=== PATIENT | male | born 1990 | race African-American/Black ===

== ENCOUNTER 2021-11-10 19:01 | Inpatient (IN) | payer MEDICARE, MEDICAID ==
[2021-11-10] MEDS ORDERED: Morphine 4 MG/ML VIAL ONE (19:43)
[2021-11-10] MEDS ORDERED: diphenhydrAMINE 50 MG/ML VIAL ONE (20:04)
[2021-11-10 20:29] LABS: Reticulocyte Count 8.1 % (0.5-1.5)
[2021-11-10 20:35] LABS: Hemoglobin 10.6 g/dL (14.0-18.0); Mean Corpuscular HGB CONC 34.1 g/dL (32.0-36.0); Mean Corpuscular Hemoglobin 32.4 pg (27.0-31.0); Mean Corpuscular Volume 95.1 fL (78.0-98.0); Mean Platelet Volume 8.6 fL (7.4-10.4); Platelet Count 271 thou/uL (130-400); RBC Distribution Width 21.2 % (11.5-14.5); Red Blood Cell (RBC) Count 3.28 mill/uL (4.70-6.10); White Blood Cell (WBC) Count 8.7 thou/uL (4.8-10.8)
[2021-11-10 20:36] LABS: ALT (SGPT) 26 U/L (8-55); AST (SGOT) 27 U/L (5-34); Albumin 4.2 g/dL (3.5-5.0); Alkaline Phosphatase 157 U/L (40-110); Anion Gap 11 mmol/L (10-20); BUN (Urea Nitrogen) 5 mg/dL (8.9-20.6); Bilirubin, Total 1.9 mg/dL (0.2-1.2); Calc. Creatinine Clearance 0 mL/min (70-130); Calcium 8.9 mg/dL (7.8-10.44); Carbon Dioxide 26 mmol/L (22-29); Chloride 106 mmol/L (98-107); Glucose 93 mg/dL (70-105); Potassium 3.5 mmol/L (3.5-5.1); Protein, Total 7.2 g/dL (6.0-8.3); Sodium 139 mmol/L (136-145)
[2021-11-10 20:38] LABS: Eosinophils 2 % (0-10); Lymphocytes 27 % (21-51); MDiff Complete? YES; Monocytes 13 % (0-10); Neutrophil 58 % (42-75); Nucleated RBC 1 % (0); Platelet Morphology Comment Appears Adequate; Polychromasia SLIGHT = 2-3 cells (100X) (0-2/hpf); Target Cells SLIGHT = 2-5 cells (100X) (0-1/hpf)
[2021-11-10] MEDS ORDERED: HYDROmorphone 0.5 MG/0.5 ML SYRINGE ONE ×2 (21:01→23:05)
[2021-11-10] MEDS ORDERED: Acetaminophen 325 MG TAB PO PRN (23:47)
[2021-11-10] MEDS ORDERED: Guaifenesin DM 100-10/5 ML UDCUP PO PRN (23:47)
[2021-11-10] MEDS ORDERED: methylPREDNISolone Sod Succ/PF 125 MG/2 ML VIAL IVP SCH (23:56)
[2021-11-11 00:03] LABS: SARS-CoV-2 NAA Rapid Test Not Detected (NotDetected)
[2021-11-11] MEDS ORDERED: Folic Acid 1 MG TAB PO SCH (00:15)
[2021-11-11] MEDS ORDERED: HYDROmorphone 0.5 MG/0.5 ML SYRINGE ONE (00:18)
[2021-11-11] MEDS ORDERED: hydrALAZINE 20 MG/ML VIAL SLOW IVP PRN (00:47)
[2021-11-11] MEDS: Sodium Chloride 0.45% 1,000 ML IV SCH ×3 (01:50→21:36)
[2021-11-11 02:45] VITALS: BMI 37.3
[2021-11-11] MEDS: HYDROmorphone 2 MG/ML VIAL SLOW IVP PRN ×4 (04:36→15:05)
[2021-11-11 04:56] LABS: #Eosinphils 0.1 thou/uL (0.0-0.7); #Lymphocytes 1.4 thou/uL (1.20-3.40); #Monocytes 0.2 thou/uL (0.11-0.59); %Lymphocytes 15.8 % (21.0-51.0); %Neutrophils 81.2 % (42.0-75.0); Hemoglobin 9.9 g/dL (14.0-18.0); Mean Corpuscular HGB CONC 34.2 g/dL (32.0-36.0); Mean Corpuscular Hemoglobin 32.5 pg (27.0-31.0); Mean Corpuscular Volume 95.1 fL (78.0-98.0); Mean Platelet Volume 8.6 fL (7.4-10.4); Platelet Count 240 thou/uL (130-400); RBC Distribution Width 20.9 % (11.5-14.5); Red Blood Cell (RBC) Count 3.05 mill/uL (4.70-6.10); White Blood Cell (WBC) Count 8.7 thou/uL (4.8-10.8)
[2021-11-11 05:21] LABS: ALT (SGPT) 23 U/L (8-55); AST (SGOT) 22 U/L (5-34); Albumin 3.9 g/dL (3.5-5.0); Alkaline Phosphatase 147 U/L (40-110); Anion Gap 9 mmol/L (10-20); BUN (Urea Nitrogen) 4 mg/dL (8.9-20.6); Bilirubin, Total 1.3 mg/dL (0.2-1.2); Calc. Creatinine Clearance 272 mL/min (70-130); Calcium 8.5 mg/dL (7.8-10.44); Carbon Dioxide 29 mmol/L (22-29); Chloride 104 mmol/L (98-107); Globulin 2.8 g/dL (2.4-3.5); Glucose 143 mg/dL (70-105); Potassium 3.8 mmol/L (3.5-5.1); Protein, Total 6.7 g/dL (6.0-8.3); Sodium 138 mmol/L (136-145)
[2021-11-11] MEDS: Famotidine/PF 20 mg/2ml Vial SLOW IVP SCH ×2 (08:59→20:51)
[2021-11-11] MEDS: Hydroxyurea 500 MG CAP PO SCH (08:59)
[2021-11-11] MEDS: methylPREDNISolone Sod Succ 40 MG VIAL IVP SCH ×2 (09:00→21:36)
[2021-11-11] MEDS ORDERED: diphenhydrAMINE 50 MG/ML VIAL IVP PRN ×2 (09:32→15:44)
[2021-11-11] MEDS ORDERED: HYDROmorphone 0.5 MG/0.5 ML SYRINGE SLOW IVP PRN (09:33)
[2021-11-11] MEDS ORDERED: OxyCODONE IR 30 MG TAB PO PRN (13:10)
[2021-11-11] MEDS ORDERED: Promethazine HCl 25 MG/ML VIAL IM PRN (15:44)
[2021-11-11] MEDS ORDERED: Zolpidem Tartrate 5 MG TAB PO PRN (15:44)
[2021-11-11] MEDS ORDERED: diphenhydrAMINE 50 MG/ML VIAL IM PRN (15:44)
[2021-11-11] MEDS ORDERED: Naloxone HCl 0.4 mg/ml Vial IV PRN (15:44)
[2021-11-11] MEDS ORDERED: diphenhydrAMINE 25 MG CAP PO PRN (15:44)
[2021-11-11] MEDS ORDERED: Communication Order-Pharmacy FS PRN (15:45)
[2021-11-11] MEDS: Promethazine HCl 25 MG in Sodium Chloride 0.9% 50 ML IVPB PRN (15:50)
[2021-11-11] MEDS: HYDROmorphone 10 mg/100 ml CADD IVPB PRN (17:33)
[2021-11-11] MEDS ORDERED: diphenhydrAMINE 50 MG/ML VIAL IVP SCH (18:30)
[2021-11-12] MEDS: HYDROmorphone 10 mg/100 ml CADD IVPB PRN ×2 (03:05→08:52)
[2021-11-12] MEDS: Sodium Chloride 0.45% 1,000 ML IV SCH (06:40)
[2021-11-12] MEDS ORDERED: diphenhydrAMINE 50 MG/ML VIAL IVP SCH (08:15)
[2021-11-12] MEDS ORDERED: diphenhydrAMINE 50 MG/ML VIAL IVP PRN (08:48)
[2021-11-12] MEDS ORDERED: Folic Acid 1 MG TAB PO SCH (09:00)
[2021-11-12] MEDS: methylPREDNISolone Sod Succ 40 MG VIAL IVP SCH (09:51)
[2021-11-12] MEDS: Hydroxyurea 500 MG CAP PO SCH (09:51)
[2021-11-12] MEDS: Famotidine/PF 20 mg/2ml Vial SLOW IVP SCH (09:51)
[2021-11-12] MEDS: Promethazine HCl 25 MG in Sodium Chloride 0.9% 50 ML IVPB PRN (13:06)
[2021-11-12] MEDS ORDERED: HYDROmorphone 2 MG/ML VIAL SLOW IVP SCH (14:00)
[2021-11-12 17:56] VITALS: BP 144/96; TEMP 98.3
[2021-11-14] MEDS ORDERED: FLU VACC QS2021-22(6MOS UP)/PF 60 MCG/0.5 ML SYRINGE IM ONE (09:00)
== END 2021-11-12 17:20 | disposition home or self-care (01) | DRG 812 ==
LOC: ERS 19:01 → NEURO 23:10 → OBSVTOIN 11-12 11:17
PROVIDERS: ADMIT Internal Medicine; ATTEND Internal Medicine
DX: D57.01 Hb-SS disease with acute chest syndrome (principal); J44.1 Chronic obstructive pulmonary disease with (acute) exacerbation; Z20.822 Contact with and (suspected) exposure to COVID-19; Z96.642 Presence of left artificial hip joint; F17.210 Nicotine dependence, cigarettes, uncomplicated; I10 Essential (primary) hypertension; G47.33 Obstructive sleep apnea (adult) (pediatric); Z88.6 Allergy status to analgesic agent; Z88.1 Allergy status to other antibiotic agents; Z88.8 Allergy status to other drugs, medicaments and biological substances; Z79.899 Other long term (current) drug therapy; Z90.49 Acquired absence of other specified parts of digestive tract; Z95.828 Presence of other vascular implants and grafts; Z71.6 Tobacco abuse counseling
CPT/HCPCS: 71045; 80053; 84484; 85025; 85046; 93005; 94640; 96365; 96366; 96375; 96376; G0378; J1170; J1200; J1642; J1956; J2270; J2550; J2920; J2930; J7620; S0028; U0002